=== PATIENT | female | born 1975 | race Caucasian/White ===

== ENCOUNTER 2020-06-24 12:44 | Emergency (ER) | payer MEDICAID ==
[~2020-06-24] VITALS: Ht 149.9 cm; Wt 73.0 kg
[2020-06-24 14:13] LABS: CLARITY URINE CLEAR (CLEAR); COLOR URINE YELLOW (YELLOW); KETONES URINE NEGATIVE (NEGATIVE); LEUKOCYTE ESTERASE URINE NEGATIVE (NEGATIVE); NITRITE URINE NEGATIVE (NEGATIVE); OCCULT BLOOD URINE NEGATIVE (NEGATIVE); PROTEIN URINE NEGATIVE (NEGATIVE); SPECIFIC GRAVITY URINE 1.019 (1.005-1.030); UROBILINOGEN URINE 0.2 E.U./dL (0.2-1.0)
[2020-06-24] MEDS ORDERED: KETOROLAC 30MG/ML VIAL IV STA (14:50)
[2020-06-24] MEDS ORDERED: SODIUM CHLORIDE 0.9% 1,000 ML IV ONE (15:00)
[2020-06-24] MEDS ORDERED: METOCLOPRAMIDE HCL 10MG/2ML VIAL IV ONE (15:00)
[2020-06-24 15:32] VITALS: BP 129/88
== END 2020-06-24 17:52 | disposition home or self-care (01) ==
LOC: ER 12:44
DX: R51.9 Headache, unspecified (principal); R42 Dizziness and giddiness
CPT/HCPCS: 70450; 81003; 81025; 96361; 96374; 96375; 99284; J1885; J2765